=== PATIENT | male | born 1975 | race African-American/Black ===

== ENCOUNTER 2020-05-05 10:36 | Day surgery (SDC) | payer OTHER ==
[2020-05-01 14:24] VITALS: BMI 26.7
[2020-05-05] MEDS ORDERED: MIDAZOLAM HCL 2 MG/2 ML SINGLE DOSE VIAL ONE ×3 (12:58→13:43)
[2020-05-05] MEDS ORDERED: CLINDAMYCIN 600 MG PREMIX BAG IVPB ONE (13:30)
[2020-05-05] MEDS ORDERED: BUPIVACAINE HCL/PF 0.25% (2.5MG/ML) 10 ML VIAL ONE (13:32)
[2020-05-05] MEDS ORDERED: PROMETHAZINE HCL 25 MG/1 ML VIAL IVPUSH PRN (14:18)
[2020-05-05] MEDS ORDERED: oxyCODONE HCL 5 MG TABLET PO PRN (14:18)
[2020-05-05] MEDS ORDERED: ONDANSETRON 4 MG/2 ML VIAL IVPUSH PRN (14:18)
[2020-05-05] MEDS ORDERED: LACTATED RINGERS SOLUTION 1,000 ML IV SCH (14:30)
[2020-05-05 15:41] VITALS: PULSE 68; TEMP 96.9
[2020-05-05 17:35] VITALS: BP 150/100
== END 2020-05-05 18:05 | disposition home or self-care (01) ==
LOC: FASU 10:36
PROVIDERS: ATTEND Orthopaedic Surgery Sports Medicine
PROC: 0SBC4ZZ Excision of Right Knee Joint, Percutaneous Endoscopic Approach (ICD-10-PCS; principal; 2020-05-05 12:45)
DX: S83.231A Complex tear of medial meniscus, current injury, right knee, initial encounter (principal); M94.261 Chondromalacia, right knee; M65.861 Other synovitis and tenosynovitis, right lower leg; J44.9 Chronic obstructive pulmonary disease, unspecified; X58.XXXA Exposure to other specified factors, initial encounter; Y92.9 Unspecified place or not applicable; Y93.9 Activity, unspecified
CPT/HCPCS: 88304-TC; 94760